=== PATIENT | female | born 1965 | race Caucasian/White ===

== ENCOUNTER 2021-04-18 18:11 | Emergency (ER) | payer BC ==
[~2021-04-18] VITALS: Ht 162.6 cm; Wt 73.0 kg
--- NOTE | 2021-04-18 18:44 | PHYS DOC ---
Past History Past Surgical History: No Surgical History Adult General Chief Complaint Chief Complaint: FOOT INJURY PAIN HPI HPI Patient is a 55-year-old female who presents with left ankle and foot pain, 5 out of 10, dull and achy in nature that happened couple hours before coming to the ED when she twisted her ankle when stepping off the sidewalk. Denies any other injuries. States she already took some ibuprofen which did seem to help some. Able to walk, but with mild discomfort. Review of Systems Review of Systems Review of systems otherwise unremarkable except noted in HPI Allergies Allergies Allergies Coded Allergies Type Severity Reaction Last Updated Verified No Known Drug Allergies 04/18/21 No Physical Exam Physical Exam Constitutional: Well developed, well nourished, no acute distress, non-toxic appearance. [] Cardiovascular:Heart rate regular rhythm, no murmur [] Lungs & Thorax: Bilateral breath sounds clear to auscultation [] Extremities: Mild tenderness and swelling circumferentially around left ankle with no obvious deformities. Neurovascular exam intact. Able to walk. Neurologic: Alert and oriented X 3, no focal deficits noted. [] Psychologic: Affect normal, judgement normal, mood normal. [] Current Patient Data Vital Signs Vital Signs Date Time Temp Pulse Resp B/P (MAP) Pulse Ox O2 Delivery O2 Flow Rate FiO2 04/18/21 18:20 97.5 70 16 150/88 96 EKG EKG [] Radiology/Procedures Radiology/Procedures [] Exam: Left ankle 3 views. Left foot 3 views INDICATION: Injury, slipped on water TECHNIQUE: Frontal, lateral and oblique views of the left ankle and left foot. Comparisons: None FINDINGS: Ankle: Bone mineralization is normal. No acute or healed fractures. Soft tissues are unremarkable. Joint spaces are well-maintained. Foot: Bone mineralization is normal. No acute or healed fractures. Soft tissues are unremarkable. Joint spaces are well-maintained. IMPRESSION: No acute osseous abnormality of the left foot or left ankle Electronically signed by: Sheila Aggarwal MD (04/18/2021 7:06 PM) [facility] Heart Score C/O Chest Pain: No Risk Factors: Risk Factors: DM, Current or recent (<one month) smoker, HTN, HLP, family history of CAD, obesity. Risk Scores: Risk Factors: DM, Current or recent (<one month) smoker, HTN, HLP, family history of CAD, obesity. Course & Med Decision Making Course & Med Decision Making Patient is a 55-year-old female presents with ankle and foot pain Vital signs not concerning. Physical exam noted above. Patient denied need for pain medicine at this time. Given ice pack. Emerging with no acute osseous abnormalities. Gave pain recommendations for home. Advised to follow-up with primary care. Patient grateful, verbalized understanding and agreed with plan of discharge. Dragon Disclaimer Dragon Disclaimer This electronic medical record was generated, in whole or in part, using a voice recognition dictation system. Departure Departure: Impression: Primary Impression: Ankle sprain Additional Impression: Foot pain Disposition: HOME / SELF CARE / HOMELESS Condition: GOOD Referrals: VANCE BERMUDEZ Patient Instructions: Ankle Sprain, RICE - Routine Care for Injuries Additional Instructions: Thank you for coming into the emergency department tonight and allowing us to take care of you. Please read all of the attached information very carefully to go back over what we discussed. As discussed, you had no broken bones or dislocations. You can begin a Tylenol, ibuprofen and ice regimen. Please follow-up with your primary care physician as needed. Please come back to the ED with new or concerning symptoms as discussed. Problem Qualifiers AGUSTO REDMOND MD Apr 18, 2021 18:43
--- NOTE | 2021-04-18 19:08 | RAD ---
Exam: Left ankle 3 views. Left foot 3 views INDICATION: Injury, slipped on water TECHNIQUE: Frontal, lateral and oblique views of the left ankle and left foot. Comparisons: None FINDINGS: Ankle: Bone mineralization is normal. No acute or healed fractures. Soft tissues are unremarkable. Joint spa ulices are well-maintained. Foot: Bone mineralization is normal. No acute or healed fractures. Soft tissues are unremarkable. Joint spa ulices are well-maintained. IMPRESSION: No acute osseous abnormality of the left foot or left ankle Electronically signed by: Sheila Aggarwal MD (04/18/2021 7:06 PM) [facility]
[2021-04-18 19:53] VITALS: BP 149/78
[2021-04-18] MEDS: ACETAMINOPHEN 500 MG TABLET PO ONE (19:55)
== END 2021-04-18 20:02 | disposition home or self-care (01) ==
LOC: ER 18:11
DX: S93.402A Sprain of unspecified ligament of left ankle, initial encounter (principal); X50.1XXA Overexertion from prolonged static or awkward postures, initial encounter; Y93.89 Activity, other specified; Y92.89 Other specified places as the place of occurrence of the external cause; Y99.8 Other external cause status
CPT/HCPCS: 73610; 73630; 99284-25